=== PATIENT | female | born 2000 | race Two or more races ===

== ENCOUNTER 2020-10-15 08:11 | Emergency (ER) | payer MEDICAID, OTHER ==
[~2020-10-15] VITALS: Ht 160 cm; Wt 83.2 kg
--- NOTE | 2020-10-15 09:48 | NUR ---
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
--- NOTE | 2020-10-15 10:18 | NUR ---
PT CAME IN [place] LOWER ABD CRAMPING AND PAIN THAT STARTED LAST NIGHT. PT REPORTS SHE HAS HAD SOME "SPOTTING" AND SAYS "I SHOULDNT BE BUT I DONT KNOW". PT RESTING IN [facility]. FRIEND BEDSIDE. UA PROVIDED. MD BEDSIDE FOR ASSESMENT. BLANKET PROVIDED
[2020-10-15 10:46] LABS: MICROSCOPIC AUTO
[2020-10-15 10:59] LABS: ALANINE AMINOTRANSFERASE 69 U/L (12-78); ALBUMIN 3.3 g/dL (3.4-5.0); ANION GAP 6 mmol/L (5-15); CALCIUM 8.8 mg/dL (8.5-10.1); CHLORIDE 108 mmol/L (98-107); CREATININE 0.63 mg/dL (0.55-1.02)
[2020-10-15 11:03] LABS: BASOPHILS % (AUTO) 1 % (0-1); EOSINOPHILS % (AUTO) 3 % (1-7); LYMPHOCYTES % (AUTO) 22 % (22-44); MEAN CORPUSCULAR HEMOGLOBIN 28.2 pg (27.0-34.8); MEAN CORPUSCULAR HGB CONC 33.5 g/dL (32.4-35.8); MEAN PLATELET VOLUME 9.2 fL (7.4-10.4); MONOCYTES % (AUTO) 6 % (2-9); NEUTROPHILS % (AUTO) 69 % (42-75); PLATELET COUNT 212 x10^3/uL (130-400); RED CELL DISTRIBUTION WIDTH 13.6 % (9.6-15.2)
[2020-10-15 11:04] LABS: ALKALINE PHOSPHATASE 113 U/L (45-117); BILIRUBIN,TOTAL 0.4 mg/dL (0.2-1.0); TOTAL PROTEIN 7.9 g/dL (6.4-8.2)
[2020-10-15 11:53] VITALS: BP 113/70
--- NOTE | 2020-10-15 11:54 | NUR ---
PT RESTING IN [facility]. PREP FOR D/C
== END 2020-10-15 13:23 | disposition home or self-care (01) ==
LOC: ED 09:32
DX: N30.00 Acute cystitis without hematuria (principal)
CPT/HCPCS: 36415; 76830; 80053; 81001; 84703; 85025; 87077; 87086; 87186; 99284